=== PATIENT | female | born 1935 | race Caucasian/White ===

== ENCOUNTER 2016-05-18 16:39 | Emergency (ER) | payer OTHER ==
--- NOTE | ~2016-05-18 | EKG ---
PATIENT: FELI ARREOLA UNIT #: [id number] Ventricular Rate: 60 BPM Atrial Rate: 60 BPM P-R Interval: 300 ms QRS Duration: 118 ms Q-T Interval: 558 ms QTC Calculation(Bezet): 558 ms P Richton: -2 degrees Calculated R Richton: 78 degrees Calculated T Richton: 33 degrees Diagnosis Line: Atrial-paced rhythm with prolonged AV conduction Diagnosis Line: Non-specific intra-ventricular conduction delay Diagnosis Line: ST and T wave abnormality, consider anterior Diagnosis Line: ischemia Diagnosis Line: Abnormal ECG Diagnosis Line: No previous ECGs available Diagnosis Line: Confirmed by SUMAN HENRY MD ([id number]) on 05/19/2016 Diagnosis Line: 7:15:53 PM INTERPRETING MD: ACRL FRERIS
--- NOTE | ~2016-05-18 | CR72 ---
[facility] A Service of [facility] & [facility] RADIOLOGY TEXT RESULTS PATIENT: FELI ARREOLA LOCATION: [facility] : 34 UNIT #: [id number] AGE: [address]: Kinjal Kebede MD SEX: F ORDER DR: [id number] [facility] [address] [place], [place] [address] [id number] E MR#: [id number] Acc #: [id number] NAME: FELI ARREOLA : 1935 SEX: F STUDY DATE/TIME: 05/18/2016 16:51 UNIT: [facility] ROOM: STUDY DESCRIPTION: CR Chest Single View Portable Attending Physician: Kinjal Kebede M.D. Ordering Physician: Kinjal Kebede M.D. Primary Care Physician: Jackeline Benavidez M.D. MEDICAL IMAGING REPORT This report is preliminary unless electronic signature is present EXAM Portable chest radiograph. DATE OF EXAM 05/18/2016 INDICATION Fall and weakness. FINDINGS Comparison is made to a prior study from April 05, 2016. Cardiomegaly is identified. There may be some vascular congestion. Lung volumes are diminished. There is no pneumothorax or pleural effusion. Left-sided pacemaker is present. Patient is status post plate and screw fixation of the proximal left humerus. Dictated by... Vicky Jimenez M.D. THIS IS AN ELECTRONICALLY VERIFIED REPORT Vicky Jimenez M.D. at 05/19/2016 4:30 PM AFF/angie TD: 05/18/2016 21:32 JOB #: [id number] MEDICAL IMAGING REPORT Page 1 of 1 COPY
--- NOTE | ~2016-05-18 | CT71 ---
[facility] A Service of [facility] RADIOLOGY TEXT RESULTS PATIENT: FELI ARREOLA LOCATION: [facility] : 34 UNIT #: [id number] AGE: [address]: Kinjal Kebede MD SEX: F ORDER DR: [id number] [facility] [address] [place], [place] [address] [id number] E MR#: [id number] Acc #: [id number] NAME: FELI ARREOLA : 1935 SEX: F STUDY DATE/TIME: 05/18/2016 17:31 UNIT: [facility] ROOM: STUDY DESCRIPTION: CT Head Wo Contrast Attending Physician: Kinjal Kebede M.D. Ordering Physician: Kinjal Kebede M.D. Primary Care Physician: Jackeline Benavidez M.D. MEDICAL IMAGING REPORT This report is preliminary unless electronic signature is present EXAM CT brain without contrast HISTORY Confusion today. Generalized weakness. Fell today. FINDINGS This CT exam was performed with one or more of the following radiation dose reduction techniques: Automatic exposure control, adjustment of mA and/or kV according to patient size, and iterative reconstruction. CT brain without contrast demonstrates no intracranial hemorrhage, mass or edema. Mild chronic ischemic changes in the deep white matter bilaterally. Mild generalized cerebral cortical atrophy. Calcified atherosclerotic plaque in the cavernous carotid arteries bilaterally. IMPRESSION 1. No acute findings. 2. Mild chronic ischemic changes in the deep white matter bilaterally and mild generalized cerebral cortical atrophy. Dictated by... Darren Paz M.D. THIS IS AN ELECTRONICALLY VERIFIED REPORT Darren Paz M.D. at 05/18/2016 11:17 PM DFL/buddy TD: 05/18/2016 22:10 JOB #: [id number] MEDICAL IMAGING REPORT [facility] A Service of [facility] RADIOLOGY TEXT RESULTS PATIENT: FELI ARREOLA LOCATION: [facility] : 34 UNIT #: [id number] AGE: [address]: Kinjal Kebede MD SEX: F ORDER DR: Page 1 of 1 COPY
--- NOTE | ~2016-05-18 | CR151 ---
[facility] A Service of [facility] RADIOLOGY TEXT RESULTS PATIENT: FELI ARREOLA LOCATION: [facility] : 34 UNIT #: [id number] AGE: [address]: Kinjal Kebede MD SEX: F ORDER DR: [id number] [facility] [address] [place], [place] [address] [id number] E MR#: [id number] Acc #: [id number] NAME: FELI ARREOLA : 1935 SEX: F STUDY DATE/TIME: 05/18/2016 16:53 UNIT: [facility] ROOM: STUDY DESCRIPTION: CR Hip Min 2 Views Rt Attending Physician: Kinjal Kebede M.D. Ordering Physician: Kinjal Kebede M.D. Primary Care Physician: Jackeline Benavidez M.D. MEDICAL IMAGING REPORT This report is preliminary unless electronic signature is present EXAM 2 views right hip. DATE OF EXAM 05/18/2016 INDICATION Right hip pain after fall today. FINDINGS No acute fracture or subluxation of the right hip is identified. 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 Dense atherosclerotic calcification of the superficial femoral arteries is noted. IMPRESSION No acute fracture or subluxation identified. Dictated by... Vicky Jimenez M.D. THIS IS AN ELECTRONICALLY VERIFIED REPORT Vicky Jimenez M.D. at 05/19/2016 4:30 PM AFF/angie TD: 05/18/2016 21:43 JOB #: [id number] MEDICAL IMAGING REPORT Page 1 of 1 COPY
[~2016-05-18 16:39] MED LIST: ACETAMINOPHEN500 M2 PO; ALPRAZOLAM PO; AMARYL PO; AMBIEN PO; AMIODARONE PO; ASPIRIN; ASPIRIN PO; ATIVAN0.5 MG PO; AZILECT 1 MG; BACTRIM DS TABL1 TAB; BACTRIM DS TABL1 TAB PO; CELEBREX PO; CIPRO PO; CIPRO250 MG PO; CLEOCIN HCL300 M1 PO; COUMADIN PO; COUMADIN2.5 MG PO; COUMADIN5 MG PO; CYTOMEL 5 MCG; CYTOMEL PO; CYTOMEL5 MCG PO; EFFER-K 20 MEQ20 MEQ PO; EFFEXOR PO; ELIQUIS2.5 MG; ELIQUIS2.5 MG PO; FLEXERIL PO; GLUCOPHAGE XR500 MG; GLUCOTROL XL; IMDUR; K-DUR20 ME1 PO; KCL PO; KLONOPIN PO; KLONOPIN1 MG PO; LASIX; LASIX PO; LEVAQUIN PO; LISINOPRIL PO; LISINOPRIL20 MG PO; LOMOTIL TABLET1 TAB; LOPRESSOR PO; LOTREL 5/10 MG1 CAP; LOTREL 5/10 MG1 CAP PO; LOVENOX SUBQ; MACROBID100 MG PO; METFORMIN HCL500 M1 PO; METFORMIN PO; MOTION RELIEF25 MG PO; MULTAQ400 MG PO; NAPROSYN250 M1 PO; PACERONE PO; PERCOCET 10/3251 TAB PO; PERCOCET 5-3251 TAB PO; PHENERGAN25 MG PO; PLAVIX PO; PRILOSEC PO; PRINIVIL20 M1 PO; REQUIP1 MG PO; REQUIP4 MG PO; ROBAXIN PO; SINEMET; SINEMET CR1 TAB 25/1 PO; SINEMET-25/1001 TAB PO; SYNTHROID; SYNTHROID PO; SYNTHROID0.15 MG PO; TOPROL XL; TOPROL XL PO; TOPROL XL50 MG PO; TYLENOL #3 PO; TYLOX 5/500 CAP1 CAP; VICODIN 5/1 TAB 5/50 PO; VICODIN 5/500 T1 TAB PO; VICODIN PO; ZITHROMAX PO; ZOFRAN PO
[2016-05-18 16:49] LABS: POC - CKMB <1.0 ng/mL (0.0-7.9); POC - TROPONIN <0.05 ng/mL (<=0.05)
[2016-05-18 16:53] LABS: URINE SOURCE CLEAN CATCH
[2016-05-18 17:00] LABS: BASOPHIL# 0.1 X10e3 (0-0.3); BASOPHIL% 0.8 % (0-2.5); EOSINOPHIL# 1.8 X10e3 (0-0.7); EOSINOPHIL% 15.2 % (0.0-7.0); HEMATOCRIT 33.5 % (35.0-45.0); HEMOGLOBIN 10.7 gm/dL (12.0-16.0); LYMPHOCYTE# 1.7 X10e3 (1.0-3.5); LYMPHOCYTE% 15.1 % (17.0-45.0); MEAN CELL VOLUME 90.1 FL (83-96); MEAN CORPUSCULAR HEMOGLOBIN 28.9 PG (28-34); MEAN CORPUSCULAR HGB CONC 32.1 g/dL (30-36); MEAN PLATELET VOLUME 8.5 FL (6.5-11.5); MONOCYTE# 1.5 X10e3 (0-1.0); MONOCYTE% 12.9 % (3.0-12.0); NEUTROPHIL# 6.5 X10e3 (1.5-7.1); PLATELET COUNT 144 X10e3 (140-420); RED BLOOD COUNT 3.72 X10e (3.90-5.30); RED CELL DISTRIBUTION WIDTH 16.2 % (11.0-15.5); URINE APPEARANCE CLEAR; URINE BILIRUBIN NEG (NEG); URINE BLOOD 2+ (NEG); URINE COLOR YELLOW; URINE GLUCOSE NEG (NEG); URINE KETONE NEG (NEG); URINE LEUKOCYTE ESTERASE 3+ (NEG); URINE NITRATE NEG (NEG); URINE PROTEIN NEG (NEG); URINE SPECIFIC GRAVITY 1.011 (1.003-1.035); WHITE BLOOD COUNT 11.6 X10e3 (4.0-10.5)
[2016-05-18 17:03] LABS: CULTURE INDICATED? YES; URINE BACTERIA AUWI NEG (NEGATIVE); URINE SQUAMOUS EPITHELIAL CELL OCC /[HPF]
[2016-05-18 17:09] LABS: DIFF IND NO
[2016-05-18 17:40] LABS: BILIRUBIN, DIRECT 0.2 mg/dL (0.0-0.2); BILIRUBIN,INDIRECT 0.7 mg/dL (0.0-0.9); BILIRUBIN,TOTAL 0.9 mg/dL (0.2-2.0); BUN/CREATININE RATIO 12.3; CALCIUM SERUM 8.7 mg/dL (8.4-10.2); CREATININE SERUM 1.3 mg/dL (0.6-1.4); GLOM FILT RATE Estimated 38.4 mL/min (>60); POTASSIUM 3.5 mmol/L (3.5-5.1); PROTEIN TOTAL SERUM 7.3 g/dL (6.0-8.3)
[2016-05-18 19:22] LABS: POC - CKMB <1.0 ng/mL (0.0-7.9); POC - TROPONIN <0.05 ng/mL (<=0.05)
== END 2016-05-18 20:50 | disposition home or self-care (01) ==
LOC: CED 16:39
PROVIDERS: Emergency Medicine
DX: N39.0 Urinary tract infection, site not specified (principal); I10 Essential (primary) hypertension; E11.9 Type 2 diabetes mellitus without complications; W19.XXXA Unspecified fall, initial encounter; Y92.9 Unspecified place or not applicable
CPT/HCPCS: 36415; 51701; 70450; 71010; 73502; 80048; 80076; 81003; 82553; 84484; 85025; 87086; 93005; 99284